=== PATIENT | female | born 1940 ===

== ENCOUNTER 2016-10-30 19:26 | Emergency (ER) | payer OTHER ==
[2016-10-30 19:56] VITALS: BMI 26.9
[2016-10-30 19:59] VITALS: RESP 20
--- NOTE | 2016-10-30 20:02 | C.PDOC ---
History Of Present Illness 76 year old female was brought to the ED by her daughter with complaints of subjective fever, generalized body aches, weakness, and headache for two days with associated wet sounding cough that is non-productive. Patient's daughter is concerned it is pneumonia because six months prior the patient had similar symptoms and was diagnosed with pneumonia. Patient has a follow up appointment with PMD scheduled for 11/01/2016. She denies abdominal pain, urinary symptoms, nausea, or vomiting. Time Seen by Provider: 10/30/16 19:42 Chief Complaint (Nursing): Headache History Per: Patient History/Exam Limitations: no limitations Onset/Duration Of Symptoms: Days (2 days ) Current Symptoms Are (Timing): Still Present Sick Contacts (Context): None Associated Symptoms: Fever, Cough. denies: Chills, Nausea, Vomiting, Diarrhea Recent travel outside of the [place]: No Additional History Per: Family (daughter ) Past Medical History Reviewed: Historical Data, Nursing Documentation, Vital Signs Vital Signs: Last Vital Signs Temp 98.8 F 10/30/16 19:52 Pulse 100 H 10/30/16 19:52 Resp 20 10/30/16 19:52 BP 135/93 H 10/30/16 19:52 Pulse Ox 95 10/30/16 19:52 - Medical History PMH: Depression, HTN, Hypothyroidism Surgical History: Cholecystectomy Family History: States: Unknown Family Hx - Social History Hx Alcohol Use: No Hx Substance Use: No - Immunization History Hx Tetanus Toxoid Vaccination: No Hx Influenza Vaccination: No Hx Pneumococcal Vaccination: No Review Of Systems Constitutional: Positive for: Fever, Weakness, Other (generalized body aches ). Negative for: Chills Cardiovascular: Negative for: Chest Pain, Palpitations Respiratory: Positive for: Cough (wet sounding, non-productive ). Negative for : Shortness of Breath Gastrointestinal: Negative for: Nausea, Vomiting, Abdominal Pain, Diarrhea Genitourinary: Negative for: Dysuria, Frequency, Incontinence Physical Exam - Physical Exam Appears: Non-toxic, Other (Patient appears very weak ) Skin: Warm, Dry Head: Atraumatic Eye(s): bilateral: Normal Inspection, PERRL, EOMI Oral Mucosa: Moist Neck: Supple Chest: Symmetrical, No Deformity Cardiovascular: Rhythm Regular Respiratory: Rhonchi (bilateral rhonci, worse in the right base ), Other ( Patient is not in respiratory distress ) Gastrointestinal/Abdominal: Soft, No Tenderness, No Distention, No Guarding, No Rebound Neurological/Psych: Other (Patient is awake and alert ) ED Course And Treatment - Laboratory Results Result Diagrams: 10/30/16 20:21 10/30/16 20:21 Lab Interpretation: Abnormal (CBC normal, BUN 30 with normal Cr, Mild elevation LFTs, urine +WBC 35 with leukocyte esterase.) - Radiology CXR: Interpreted by Me CXR Interpretation: Yes: Other (chronic lung disease unchanged since 05/2015) Progress Note: Patient treated with Rocephin IV in ED Disposition - Disposition Disposition: HOME/ ROUTINE Disposition Time: 21:31 Condition: STABLE Prescriptions: Amoxicillin/Clavulanate [Augmentin 875 MG-125 MG] 1 tab PO BID #14 tab Instructions: Urinary Tract Infection in Women (ED) Forms: [employer] (Albanian) - Clinical Impression Clinical Impression: UTI (urinary tract infection) - Scribe Statement The provider has reviewed the documentation as recorded by the Scribe Helga Eduardo All medical record entries made by the Scribe were at my direction and personally dictated by me. I have reviewed the chart and agree that the record accurately reflects my personal performance of the history, physical exam, medical decision making, and the department course for this patient. I have also personally directed, reviewed, and agree with the discharge instructions and disposition.
[2016-10-30 20:24] LABS: BASO # 0.1 K/uL (0.0-0.2); BASO % 0.6 % (0.0-2.0); EOS # 0.1 K/uL (0.0-0.7); EOS % 1.4 % (0.0-4.0); HEMATOCRIT 45.5 % (34.0-47.0); LYMPH # 1.8 K/uL (1.0-4.3); LYMPH % 22.1 % (20.0-40.0); MEAN CELL VOLUME 88.3 fL (81.0-99.0); MEAN CORPUSCULAR HEMOGLOBIN 30.4 pg (27.0-31.0); MEAN CORPUSCULAR HGB CONC 34.4 g/dL (33.0-37.0); MEAN PLATELET VOLUME 7.4 fL (7.2-11.7); MONO # 1.4 K/uL (0.0-0.8); MONO % 17.8 % (0.0-10.0); RED CELL DISTRIBUTION WIDTH 13.6 % (11.5-14.5)
[2016-10-30 20:32] LABS: CHLORIDE 100 mmol/L (98-107)
[2016-10-30 20:33] LABS: POTASSIUM 4.7 mmol/L (3.6-5.2); SODIUM 137 mmol/L (132-148)
[2016-10-30 20:35] LABS: ALKALINE PHOSPHATASE 90 U/L (38-126); AST/SGOT 59 U/L (14-36); BILIRUBIN,TOTAL 0.9 mg/dL (0.2-1.3); BLOOD UREA NITROGEN 30 mg/dL (7-17); CARBON DIOXIDE 23 mmol/L (22-30); GFR AFRICAN-AMERICAN > 60; GLUCOSE,RANDOM 114 mg/dL (65-105); TOTAL PROTEIN 8.2 g/dL (6.3-8.3)
[2016-10-30 20:36] LABS: ALT/SGPT 54 U/L (9-52); CALCIUM 8.8 mg/dl (8.6-10.4)
[2016-10-30] MEDS ORDERED: Sodium Chloride 0.9% 1,000 ML IV ONE (20:39)
[2016-10-30] MEDS ORDERED: Sodium Chloride 0.9% 1,000 ML ONE (21:03)
[2016-10-30 21:23] LABS: RBC URINE 22 /hpf (0-3); URINE BACTERIA RARE (<OCC); URINE BILIRUBIN NEGATIVE (NEGATIVE); URINE BLOOD 2+ (NEGATIVE); URINE COLOR Yellow (YELLOW); URINE GLUCOSE (UA) NORMAL (Normal); URINE KETONE NEGATIVE (NEGATIVE); URINE LEUKOCYTE ESTERASE 1+ Leu/uL (Negative); URINE PROTEIN 2+ mg/dL (NEGATIVE); URINE UROBILINOGEN NORMAL mg/dL (0.2-1.0); WBC URINE 35 /hpf (0-5)
[2016-10-30] MEDS ORDERED: cefTRIAXone IV 1 gm in Dextros 50 ML IVPB ONE ×2 (21:30→21:35)
[2016-10-30 22:07] VITALS: BP 140/69; PULSE 71; TEMP 98.9; O2SAT 98
--- NOTE | 2016-10-31 08:39 | RAD ---
HISTORY: SOB COMPARISON: Chest radiographs 05/17/2015 TECHNIQUE: Chest PA and lateral FINDINGS: LUNGS: No acute infiltrate is identified however chronic interstitial pulmonary disease again appreciated, apical predominant with likely bullous changes are again identified in the left upper lung zone. PLEURA: No significant pleural effusion identified. No pneumothorax apparent. CARDIOVASCULAR: Stable cardiomegaly. No pulmonary vascular derangement identified. OSSEOUS STRUCTURES: No significant abnormalities. VISUALIZED UPPER ABDOMEN: Normal. OTHER FINDINGS: None. IMPRESSION: Chronic interstitial pulmonary changes are again identified without interval although ill itis or pleural effusion/pneumothorax bilaterally. CT is available for follow-up if clinically warranted.
== END 2016-10-30 22:07 | disposition home or self-care (01) ==
LOC: C.ER 19:26
DX: N39.0 Urinary tract infection, site not specified (principal); B96.89 Other specified bacterial agents as the cause of diseases classified elsewhere
CPT/HCPCS: 71020; 80053; 81001; 85025; 87040; 87086; 96361; 96365; 99285; J0696; J7040

== ENCOUNTER 2018-01-31 12:44 | Observation (INO) | payer OTHER ==
[2018-01-31 12:44] VITALS: BMI 31.2
[2018-01-31 13:24] LABS: BASO # 0.1 K/uL (0.0-0.2); BASO % 0.8 % (0.0-2.0); EOS # 0.6 K/uL (0.0-0.7); EOS % 6.2 % (0.0-4.0); LYMPH # 2.3 K/uL (1.0-4.3); LYMPH % 23.8 % (20.0-40.0); MEAN CELL VOLUME 88.1 fL (81.0-99.0); MEAN CORPUSCULAR HEMOGLOBIN 29.9 pg (27.0-31.0); MEAN CORPUSCULAR HGB CONC 33.9 g/dL (33.0-37.0); MEAN PLATELET VOLUME 7.4 fL (7.2-11.7); MONO # 0.9 K/uL (0.0-0.8); MONO % 9.2 % (0.0-10.0); NEUT # 5.9 K/uL (1.8-7.0); NRBC % 0.1 % (0.0-2.0); RBC 4.32 Mil/uL (3.80-5.20); RED CELL DISTRIBUTION WIDTH 13.8 % (11.5-14.5); WHITE BLOOD COUNT 9.8 K/uL (4.8-10.8)
[2018-01-31 13:25] LABS: HEMOGLOBIN 12.9 g/dL (11.0-16.0)
[2018-01-31 13:32] LABS: INR 1.1; PROTHROMBIN TIME 11.9 SECONDS (9.7-12.2)
[2018-01-31 13:33] LABS: ALB/GLOB RATIO 1.1 (1.0-2.1); ALBUMIN 4.1 g/dL (3.5-5.0); ALT/SGPT 19 U/L (9-52); AST/SGOT 23 U/L (14-36); BLOOD UREA NITROGEN 21 mg/dL (7-17); CALCIUM 8.7 mg/dl (8.6-10.4); GFR NON-AFRICAN AMERICAN 54
--- NOTE | 2018-01-31 13:37 | C.PDOC ---
History Of Present Illness 77 y/o female with history of AAA with dissection no surgical intervention in 2017 presents to ED sent by Dr. Serna for evaluation of "pressure" chest pain radiating to back since 8am today. Patient given Aspirin and Nitro spray on field, at ED reports improvement. Patient denies sob, nausea, vomiting, leg swelling, headache or any other complaints at this time. Time Seen by Provider: 01/31/18 13:11 Chief Complaint (Nursing): Chest Pain History Per: Patient History/Exam Limitations: no limitations Onset/Duration Of Symptoms: Hrs Current Symptoms Are (Timing): Still Present Quality: Pressure Past Medical History Reviewed: Historical Data, Nursing Documentation, Vital Signs Vital Signs: Last Vital Signs Temp 98.3 F 01/31/18 12:45 Pulse 63 01/31/18 12:45 Resp 20 01/31/18 12:45 BP 133/78 01/31/18 12:45 Pulse Ox 94 L 01/31/18 12:45 - Medical History PMH: Depression, HTN, Hypothyroidism, Pneumonia Surgical History: Cholecystectomy - [facility] (01/07/18) EXERCISE TREATMENT OF MUSCULOSK WHOLE USING ASSIST EQUIPMENT (01/10/18) HOME MANAGEMENT TREATMENT USING ASSIST EQUIPMENT (01/10/18) INTRODUCE OF OTH ANTI-INFECT INTO PERIPH VEIN, PERC APPROACH (01/10/18) INTRODUCTION OF ANTI-INFLAM INTO RESP TRACT, VIA OPENING (01/07/18) Family History: States: No Known Family Hx - Social History Hx Alcohol Use: No Hx Substance Use: No - Immunization History Hx Tetanus Toxoid Vaccination: No Hx Influenza Vaccination: No Hx Pneumococcal Vaccination: No Review Of Systems Constitutional: Negative for: Fever, Chills Cardiovascular: Positive for: Chest Pain. Negative for: Palpitations Respiratory: Negative for: Cough, Shortness of Breath Gastrointestinal: Negative for: Nausea, Vomiting Skin: Negative for: Rash Physical Exam - Physical Exam Appears: Non-toxic, No Acute Distress Skin: Warm, Dry, No Rash Head: Atraumatic, Normacephalic Eye(s): bilateral: Normal Inspection Oral Mucosa: Moist Neck: Supple Cardiovascular: Rhythm Regular Respiratory: Normal Breath Sounds, No Accessory Muscle Use, Rales (bilateral at bases), No Rhonchi, No Wheezing Gastrointestinal/Abdominal: Soft, No Tenderness, No Guarding, No Rebound Extremity: Normal ROM, No Pedal Edema, Capillary Refill (<2 seconds) Neurological/Psych: Oriented x3, Normal Speech, Normal Cognition ED Course And Treatment - Laboratory Results Result Diagrams: 01/31/18 12:30 01/31/18 12:30 ECG: Interpreted By Me, Viewed By Me ECG Rhythm: Sinus Rhythm Rate From EC (BPM) O2 Sat by Pulse Oximetry: 94 (RA) Pulse Ox Interpretation: Normal - CT Scan/US CT dissection study Other Rad Studies (CT/US): Read By Radiologist, Radiology Report Reviewed CT/US Interpretation: IMPRESSION: Fusiform focal dilatation of the aortic arch likely represent aortic aneurysm with focal dissection or large mural thrombosis. Aortic dissection extending from the mid descending thoracic aorta to the left common iliac artery. The aortic branches are all patent and opacifi ed with contrast. Focal cnao-mo-ogjuotsj stenosis at the origin of the renal arteries bilaterally right more than left. Partially imaged 4 centimeters cyst at the left pelvis likely represent left adnexal cyst. Given the patient's age further assessment / follow-up ultrasound is suggested. Additional findings as discussed above. Progress Note: Blood work, CT dissection study ordered. - Physician Consult Information Physician Contacted: Joe Serna Outcome Of Conversation: Discussed patient with PMD, who has looked at her CT and blood work. Aortic dissection appears unchanged and stable. Patient was previously sent to [facility] for eval - no surgical intervention was done. PMD would like patient to be obs tele for chest pain, chronic aortic dissection. Disposition - Disposition - Scribe Statement The provider has reviewed the documentation as recorded by the Yomi Mathew All medical record entries made by the Jose Manuelibannika were at my direction and personally dictated by me. I have reviewed the chart and agree that the record accurately reflects my personal performance of the history, physical exam, medical decision making, and the department course for this patient. I have also personally directed, reviewed, and agree with the discharge instructions and disposition.
[2018-01-31] MEDS ORDERED: Iodixanol 320 MG/ML 100 ML BOTTLE IV ONE (13:49)
[2018-01-31 13:51] LABS: CK-MB 0.53 ng/mL (0.0-3.38)
--- NOTE | 2018-01-31 15:09 | CT ---
PROCEDURE: CT Angiography Chest, Abdomen and Pelvis with and without intravenous contrast HISTORY: chest pain, h/o dissection COMPARISON: No prior similar study available for comparison. Patient had CT of the abdomen and pelvis without contrast dated 01/04/2015 TECHNIQUE: Contiguous axial images of the chest, abdomen and pelvis were obtained in the phase of aortic enhancement. A noncontrast enhanced CT of the chest was also obtained to evaluate for possible intramural thrombus. Coronal and sagittal reformats were generated. IV dose administered: 100 mL of Visipaque 320 intravenously. Radiation dose: Total exam DLP = 1388.22 mGy-cm. This CT exam was performed using one or more of the following dose reduction techniques: Automated exposure control, adjustment of the mA and/or kV according to patient size, and/or use of iterative reconstruction technique. FINDINGS: CT ANGIOGRAPHY OF THE CHEST WITH & WITHOUT CONTRAST: AORTA (CHEST AND ABDOMEN): The thoracic aorta is tortuous. There is focal aneurysmal dilatation at the proximal portion of the aortic arch measures 3.9 centimeter associated with large mural thickening versus dissection. There is aortic dissection noted extending from the mid descending aorta to the the abdominal aorta and proximal left common iliac artery. The right brachiocephalic left common carotid and left subclavian arteries are patent. The celiac axis, superior mesenteric artery, inferior mesenteric artery and the renal arteries are widely patent. There are foci of moderate stenosis at the origin of the renal arteries right more than left. Atherosclerotic disease and mural thickening noted in the pelvic arteries. LUNGS: The left lung is smaller than the right. There is bronchiectasis noted in the left lung upper lobe. Mild emphysematous changes are also noted. There are small cystic formation seen at the lower lobes may represent mild lung fibrosis. MEDIASTINUM: The main pulmonary artery is mildly to moderately enlarged measures up to 4.5 centimeter. The heart is moderately enlarged. LYMPH NODES: Mildly enlarged mediastinal lymph nodes are noted. PLEURA: Unremarkable. No pneumothorax. No pleural fluid. BONES: Unremarkable. OTHER FINDINGS: None. CT ANGIOGRAPHY OF THE ABDOMEN AND PELVIS WITH CONTRAST: LIVER: Mild hepatomegaly noted. GALLBLADDER AND BILE DUCTS: Status post cholecystectomy PANCREAS: Unremarkable. No gross lesion or ductal dilatation. SPLEEN: Unremarkable. ADRENALS: Unremarkable. No mass. KIDNEYS AND URETERS: The kidneys are slightly small in size. The kidneys enhance symmetrically without evidence of hydronephrosis. VASCULATURE: Abdominal aortic dissection as described above noted extending to the proximal left common iliac artery. Diffuse atherosclerotic disease noted. STOMACH AND BOWEL: Unremarkable. No obstruction. No gross mural thickening. Diffuse colonic diverticulosis are seen without evidence of diverticulitis. APPENDIX: No evidence of appendicitis. PERITONEUM: Unremarkable. No free fluid. No free air. LYMPH NODES: Unremarkable. No enlarged lymph nodes. BLADDER: Not fully included in this study. REPRODUCTIVE: Not fully included in this study. There is low-attenuation cystic lesion at the left aspect of the pelvis measures 4 centimeter may represent left adnexal cyst. Given the patient's age further assessment by ultrasound is recommended. BONES: No acute fracture. OTHER FINDINGS: None. IMPRESSION: Fusiform focal dilatation of the aortic arch likely represent aortic aneurysm with focal dissection or large mural thrombosis. Aortic dissection extending from the mid descending thoracic aorta to the left common iliac artery. The aortic branches are all patent and opacified with contrast. Focal acpa-vo-jgwuuusx stenosis at the origin of the renal arteries bilaterally right more than left. Partially imaged 4 centimeters cyst at the left pelvis likely represent left adnexal cyst. Given the patient's age further assessment / follow-up ultrasound is suggested. Additional findings as discussed above.
[2018-02-01] MEDS ORDERED: Levothyroxine 88 MCG TAB PO SCH (06:30)
[2018-02-01] MEDS: Albuterol-Ipratrop 3 mg / 0.5 (3 ml) UD INH SCH ×3 (07:39→16:08)
[2018-02-01] MEDS ORDERED: Enoxaparin 40 mg Syringe SC SCH (10:00)
[2018-02-01] MEDS ORDERED: Fluticasone Nasal 50 mcg/Spray NAS SCH ×2 (10:00→11:30)
[2018-02-01] MEDS ORDERED: Lactobacillus Acidophilus 500 MU Cap PO SCH (10:00)
[2018-02-01] MEDS ORDERED: Amoxicillin-Clav 875-125 mg Tab PO SCH (10:00)
[2018-02-01 11:30] LABS: BASO % 0.3 % (0.0-2.0); EOS # 0.6 K/uL (0.0-0.7); EOS % 6.7 % (0.0-4.0); HEMOGLOBIN 13.4 g/dL (11.0-16.0); LYMPH # 1.7 K/uL (1.0-4.3); LYMPH % 17.3 % (20.0-40.0); MEAN CELL VOLUME 89.3 fL (81.0-99.0); MEAN CORPUSCULAR HEMOGLOBIN 30.3 pg (27.0-31.0); MEAN PLATELET VOLUME 7.8 fL (7.2-11.7); MONO # 0.7 K/uL (0.0-0.8); MONO % 6.8 % (0.0-10.0); NEUT # 6.6 K/uL (1.8-7.0); NEUT % 68.9 % (50.0-75.0); NRBC % 0.1 % (0.0-2.0); RBC 4.4 Mil/uL (3.80-5.20); RED CELL DISTRIBUTION WIDTH 13.9 % (11.5-14.5); WHITE BLOOD COUNT 9.6 K/uL (4.8-10.8)
[2018-02-01 11:52] LABS: BLOOD UREA NITROGEN 23 mg/dL (7-17); CALCIUM 8.1 mg/dl (8.6-10.4); GFR NON-AFRICAN AMERICAN 43
[2018-02-01] MEDS ORDERED: Influenza Vaccine 60 MCG/0.5 ML SYR (3 yr & up) IM ONE (14:00)
[2018-02-01] MEDS ORDERED: Pneumococcal 23-Valent Vaccine IM ONE (14:00)
[2018-02-01 15:33] VITALS: BP 117/80; RESP 20; TEMP 98.1; O2SAT 96
--- NOTE | 2018-02-01 15:50 | CP.PCM.HP ---
History of Present Illness - History of Present Illness History of Present Illness: Patient notes feeling weak, SOB, CP precordial with irradiation to the back on/off x 1 day. At present comfortable not in distress. Will DC home. Present on Admission - Present on Admission Any Indicators Present on Admission: No Review of Systems - Constitutional Constitutional: Weakness - Cardiovascular Cardiovascular: Chest Pain, Chest Pain at Rest, Dyspnea on Exertion - Respiratory Respiratory: Dyspnea, Dyspnea on Exertion - Gastrointestinal Gastrointestinal: As Per HPI - Musculoskeletal Musculoskeletal: As Per HPI - Integumentary Integumentary: As Per HPI - Neurological Neurological: As Per HPI - Psychiatric Psychiatric: As Per HPI Past Patient History - Past Medical History & Family History Past Medical History?: Yes - Past Social History Smoking Status: Former Smoker - CARDIAC Hx Hypertension: Yes - PULMONARY Hx Pneumonia: Yes - NEUROLOGICAL Hx Neurological Disorder: Yes - HEENT Hx HEENT Problems: No Hx Cataracts: Yes - RENAL Hx Chronic Kidney Disease: No - ENDOCRINE/METABOLIC Hx Hypothyroidism: Yes - HEMATOLOGICAL/ONCOLOGICAL Hx Human Immunodeficiency Virus (HIV): No - INTEGUMENTARY Hx Dermatological Problems: No - MUSCULOSKELETAL/RHEUMATOLOGICAL Hx Musculoskeletal Disorders: No Hx Falls: No - GASTROINTESTINAL Hx Gastrointestinal Disorders: No - GENITOURINARY/GYNECOLOGICAL Hx Genitourinary Disorders: Yes Hx Urinary Tract Infection: Yes - PSYCHIATRIC Hx Depression: Yes Hx Substance Use: No - SURGICAL HISTORY Hx Cholecystectomy: Yes - ANESTHESIA Hx Anesthesia: Yes Hx Anesthesia Reactions: No Hx Malignant Hyperthermia: No Meds Home Medications: Home Medication List Medication Instructions Recorded Confirmed Type Enoxaparin [Lovenox] 40 mg SC DAILY syr 02/01/18 Rx Fluticasone Propionate [Flonase] 0 spr TOSHA BID bottle 02/01/18 Rx Fluticasone Propionate [Flonase] 1 spr TOSHA BID bottle 02/01/18 Rx Levothyroxine [Synthroid] 88 mcg PO DAILY@0630 tab 02/01/18 Rx Loratadine [Claritin] 10 mg PO DAILY tab 02/01/18 Rx Allergies/Adverse Reactions: Allergies Allergy/AdvReac Type Severity Reaction Status Date / Time No Known Allergies Allergy Verified 01/31/18 12:51 Physical Exam - Constitutional Appears: Non-toxic, Chronically Ill - Head Exam Head Exam: ATRAUMATIC, NORMAL INSPECTION, NORMOCEPHALIC - Eye Exam Eye Exam: Normal appearance - ENT Exam ENT Exam: Mucous Membranes Moist - Neck Exam Neck exam: Positive for: Full Rom - Respiratory Exam Respiratory Exam: Clear to Auscultation Bilateral - Cardiovascular Exam Cardiovascular Exam: REGULAR RHYTHM, +S1, +S2 - GI/Abdominal Exam GI & Abdominal Exam: Normal Bowel Sounds - Extremities Exam Extremities exam: Positive for: normal inspection - Neurological Exam Neurological exam: Alert, CN II-XII Intact, Oriented x3 - Psychiatric Exam Psychiatric exam: Normal Affect - Skin Skin Exam: Normal Color Results - Vital Signs Recent Vital Signs: Last Vital Signs Temp 98.1 F 02/01/18 15:00 Pulse 68 02/01/18 15:00 Resp 20 02/01/18 15:00 BP 117/80 02/01/18 15:00 Pulse Ox 96 02/01/18 15:00 - Labs Result Diagrams: 02/01/18 11:23 02/01/18 11:23 Labs: Laboratory Results - last 24 hr 02/01/18 02/01/18 11:23 11:23 WBC 9.6 RBC 4.40 Hgb 13.4 Hct 39.3 MCV 89.3 MCH 30.3 MCHC 34.0 RDW 13.9 Plt Count 190 MPV 7.8 Neut % (Auto) 68.9 Lymph % (Auto) 17.3 L Dare % (Auto) 6.8 Eos % (Auto) 6.7 H Baso % (Auto) 0.3 Neut # (Auto) 6.6 Lymph # (Auto) 1.7 Dare # (Auto) 0.7 Eos # (Auto) 0.6 Baso # (Auto) 0.0 Sodium 136 Potassium 4.5 Chloride 102 Carbon Dioxide 23 Anion Gap 16 BUN 23 H Creatinine 1.2 Est GFR ( Amer) 53 Est GFR (Non-Af Amer) 43 Random Glucose 117 H Calcium 8.1 L Troponin I < 0.0120 Assessment & Plan (1) PAH (pulmonary arterial hypertension) with portal hypertension Status: Acute (2) UTI (urinary tract infection) Status: Acute (3) Aortic aneurysm Status: Chronic (4) COPD (chronic obstructive pulmonary disease) Status: Chronic (5) Hypertensive cardiovascular disease Status: Chronic (6) Hypothyroid Status: Chronic (7) Chest pain Status: Acute - Assessment and Plan (Free Text) Plan: As above
[2018-02-01 16:26] VITALS: PULSE 75
--- NOTE | 2018-02-01 23:51 | CARD ---
APPROVED REPORT Date of service: 01/31/2018 EKG Measurement Heart [id number] <Conclusion> Normal sinus rhythm Minimal voltage criteria for LVH, may be normal variant Cannot rule out Anterior infarct, age undetermined Abnormal ECG
== END 2018-02-01 17:02 | disposition home or self-care (01) ==
LOC: C.ER 12:44 → C.9E 15:27 → C.6T 02-01 00:07
PROVIDERS: ADMIT Internal Medicine; ATTEND Internal Medicine
DX: R07.89 Other chest pain (principal); I10 Essential (primary) hypertension; Z87.891 Personal history of nicotine dependence; E03.9 Hypothyroidism, unspecified
CPT/HCPCS: 36415; 71275; 74175; 80048; 80053; 82550; 82553; 83735; 83880; 84484; 85025; 85610; 85730; 87040; 93005; 94640; 94760; G0378; J1650; Q9967